=== PATIENT | male | born 1950 | race African-American/Black ===

== ENCOUNTER 2023-07-12 04:21 | Day surgery (SDC) | payer OTHER ==
[2023-07-10 10:21] VITALS: BMI 28.1
[2023-07-12] MEDS ORDERED: LIDOCAINE HCL/PF 2% SDV 5ML VIAL ONE (12:27)
[2023-07-12] MEDS ORDERED: PROPOFOL 20 ML ONE (12:27)
[2023-07-12] MEDS ORDERED: ONDANSETRON 4 MG/2 ML VIAL ONE ×2 (12:27→13:27)
[2023-07-12] MEDS ORDERED: DEXAMETHASONE SOD PHOSPHATE 4 MG/1 ML VIAL ONE ×2 (12:27→13:27)
[2023-07-12] MEDS ORDERED: MIDAZOLAM HCL 2 MG/2 ML SINGLE DOSE VIAL ONE (12:28)
[2023-07-12] MEDS ORDERED: ceFAZolin SODIUM 1 GM VIAL ONE (13:27)
[2023-07-12] MEDS ORDERED: ceFAZolin SODIUM 1 GM VIAL IVPB ONE (13:30)
[2023-07-12] MEDS ORDERED: ONDANSETRON 4 MG/2 ML VIAL IVPUSH PRN (14:35)
[2023-07-12] MEDS ORDERED: PROMETHAZINE HCL 25 MG/1 ML VIAL IVPB PRN (14:35)
[2023-07-12] MEDS ORDERED: oxyCODONE HCL 5 MG TABLET PO PRN ×2 (14:35)
[2023-07-12] MEDS ORDERED: ACETAMINOPHEN 1000 MG/100 ML BAG IVPB ONE ×2 (14:35→14:43)
[2023-07-12] MEDS ORDERED: ACETAMINOPHEN INJECTION 100 ML IVPB ONE (14:40)
[2023-07-12] MEDS ORDERED: LACTATED RINGERS SOLUTION 1,000 ML IV SCH (14:45)
[2023-07-12] MEDS ORDERED: hydrALAZINE HCL 20 MG/ML VIAL ONE (16:00)
[2023-07-12] MEDS ORDERED: hydrALAZINE HCL 20 MG/ML VIAL IVPUSH ONE (16:03)
[2023-07-12 17:12] VITALS: RESP 18
[2023-07-12 17:45] VITALS: BP 123/84; PULSE 88; TEMP 98.2
== END 2023-07-12 17:45 | disposition home or self-care (01) ==
LOC: JASU-SURG 04:21
PROVIDERS: ATTEND Urology
PROC: 0V503ZZ Destruction of Prostate, Percutaneous Approach (ICD-10-PCS; principal; 2023-07-12 13:00)
DX: C61 Malignant neoplasm of prostate (principal)
CPT/HCPCS: 55873; C2618; 94760

== ENCOUNTER 2023-10-24 07:48 | Inpatient (IN) | payer OTHER ==
[2023-10-22 13:58] VITALS: BMI 27.8
[2023-10-24] MEDS ORDERED: MIDAZOLAM HCL 2 MG/2 ML SINGLE DOSE VIAL ONE ×2 (09:24→12:41)
[2023-10-24] MEDS ORDERED: ROPIVACAINE HCL 0.5% 30ML VIAL ONE (10:20)
[2023-10-24] MEDS ORDERED: DEXAMETHASONE SOD PHOSPHATE/PF 10 MG/ML SDV ONE (10:20)
[2023-10-24] MEDS ORDERED: BUPIVACAINE HCL/PF 0.5% (5MG/ML) 10 ML VIAL ONE (10:44)
[2023-10-24] MEDS ORDERED: PROPOFOL 60 ML ONE (11:01)
[2023-10-24] MEDS ORDERED: VANCOMYCIN 1,000 MG VIAL (RESTRICTED TO ID ONLY) ONE (11:24)
[2023-10-24] MEDS ORDERED: ONDANSETRON 4 MG/2 ML VIAL ONE (11:24)
[2023-10-24] MEDS ORDERED: ceFAZolin SODIUM 1 GM VIAL ONE ×2 (11:24→12:50)
[2023-10-24] MEDS ORDERED: KETOROLAC TROMETHAMINE 30 MG/1 ML VIAL ONE (11:24)
[2023-10-24] MEDS ORDERED: TRANEXAMIC ACID 1000 MG/10 ML VIAL ONE ×2 (11:24→12:50)
[2023-10-24] MEDS ORDERED: PROPOFOL 20 ML ONE (12:55)
[2023-10-24] MEDS ORDERED: ACETAMINOPHEN 1000 MG/100 ML BAG IVPB ONE (14:15)
[2023-10-24] MEDS ORDERED: ONDANSETRON 4 MG/2 ML VIAL IVPUSH PRN ×2 (14:15→14:54)
[2023-10-24] MEDS ORDERED: oxyCODONE HCL 5 MG TABLET PO PRN (14:15)
[2023-10-24] MEDS ORDERED: MAGNESIUM HYDROX 2400MG/30ML ORAL SUSPENSION 30 ML CUP PO PRN (14:54)
[2023-10-24] MEDS ORDERED: MAG HYDROX/AL HYDROX/SIMETH 30 ML UNIT-DOSE CUP PO PRN (14:54)
[2023-10-24] MEDS ORDERED: LACTATED RINGERS SOLUTION 1,000 ML IV SCH (15:00)
[2023-10-24] MEDS ORDERED: ACETAMINOPHEN INJECTION 100 ML IVPB ONE (15:12)
[2023-10-24] MEDS: LACTATED RINGERS SOLUTION 1,000 ML IV SCH (16:50)
[2023-10-24] MEDS: KETOROLAC TROMETHAMINE 30 MG/1 ML VIAL IVPUSH SCH ×2 (16:51→22:07)
[2023-10-24] MEDS: oxyCODONE HCL 5 MG TABLET PO PRN ×2 (17:25→23:52)
[2023-10-24] MEDS: CEFAZOLIN SODIUM 2 GM in DEXTROSE 5%-WATER 100 ML IVPB SCH (18:27)
[2023-10-24] MEDS ORDERED: oxyCODONE HCL 10 MG SUSTAINED ACTING TABLET PO SCH (22:00)
[2023-10-24] MEDS: CELECOXIB 200 MG CAPSULE PO SCH (22:05)
[2023-10-24] MEDS: ACETAMINOPHEN 500 MG TABLET (FP) PO SCH (22:05)
[2023-10-24] MEDS: GABAPENTIN 300 MG CAPSULE PO SCH (22:05)
[2023-10-24] MEDS: SENNOSIDES/DOCUSATE COMBO (SENNA PLUS) TABLET (UD) PO SCH (22:06)
[2023-10-24] MEDS: ASPIRIN COATED 81 MG TABLET.EC PO SCH (22:08)
[2023-10-25] MEDS: CEFAZOLIN SODIUM 2 GM in DEXTROSE 5%-WATER 100 ML IVPB SCH ×2 (01:52→06:04)
[2023-10-25] MEDS: ACETAMINOPHEN 500 MG TABLET (FP) PO SCH ×4 (03:52→22:02)
[2023-10-25] MEDS: oxyCODONE HCL 5 MG TABLET PO PRN ×3 (05:30→22:04)
[2023-10-25 08:06] LABS: HEMATOCRIT 33.9 % (35.4-49); HEMOGLOBIN 11.2 G/dL (11.7-16.9); MCH 32.1 pg (25.7-33.7); MEAN PLT VOLUME 7.6 fl (7.5-11.1); PLATELET COUNT 206.9 10^3/uL (134-434); RBC 3.49 10^6/uL (4.00-5.60); RDW 13.8 % (11.9-15.9)
[2023-10-25 08:40] LABS: CALCIUM 8.6 mg/dl (8.5-10.1); CREATININE 1.2 mg/dl (0.6-1.3); POTASSIUM 4.2 mmol/L (3.5-5.1)
[2023-10-25] MEDS: GABAPENTIN 300 MG CAPSULE PO SCH ×2 (09:08→22:01)
[2023-10-25] MEDS: ASPIRIN COATED 81 MG TABLET.EC PO SCH ×2 (09:08→22:02)
[2023-10-25] MEDS: CELECOXIB 200 MG CAPSULE PO SCH ×2 (09:08→22:01)
[2023-10-25] MEDS: SENNOSIDES/DOCUSATE COMBO (SENNA PLUS) TABLET (UD) PO SCH (09:08)
[2023-10-25] MEDS: PANTOPRAZOLE 40 MG TABLET PO SCH (09:10)
[2023-10-25] MEDS: LACTATED RINGERS SOLUTION 1,000 ML IV SCH (17:12)
[2023-10-26] MEDS: SENNOSIDES/DOCUSATE COMBO (SENNA PLUS) TABLET (UD) PO SCH ×3 (05:38→23:07)
[2023-10-26] MEDS: ACETAMINOPHEN 500 MG TABLET (FP) PO SCH ×4 (06:34→22:55)
[2023-10-26 08:34] LABS: HEMATOCRIT 31.6 % (35.4-49); HEMOGLOBIN 10.4 G/dL (11.7-16.9); MCH 31.5 pg (25.7-33.7); MCHC 32.9 g/dl (32.0-35.9); MEAN CELL VOLUME 95.7 fl (80-96); PLATELET COUNT 204.9 10^3/uL (134-434); RDW 13.9 % (11.9-15.9)
[2023-10-26 08:46] LABS: CALCIUM 8.5 mg/dl (8.5-10.1); CREATININE 1.1 mg/dl (0.6-1.3); POTASSIUM 3.8 mmol/L (3.5-5.1)
[2023-10-26] MEDS: oxyCODONE HCL 5 MG TABLET PO PRN ×4 (09:05→22:56)
[2023-10-26] MEDS: GABAPENTIN 300 MG CAPSULE PO SCH ×2 (09:05→22:56)
[2023-10-26] MEDS: ASPIRIN COATED 81 MG TABLET.EC PO SCH ×2 (09:06→22:57)
[2023-10-26] MEDS: PANTOPRAZOLE 40 MG TABLET PO SCH (09:06)
[2023-10-26] MEDS: CELECOXIB 200 MG CAPSULE PO SCH ×2 (09:06→22:55)
[2023-10-27] MEDS: PANTOPRAZOLE 40 MG TABLET PO SCH (09:21)
[2023-10-27] MEDS: GABAPENTIN 300 MG CAPSULE PO SCH (09:21)
[2023-10-27] MEDS: CELECOXIB 200 MG CAPSULE PO SCH ×2 (09:21→22:27)
[2023-10-27] MEDS: ACETAMINOPHEN 500 MG TABLET (FP) PO SCH ×4 (09:22→18:13)
[2023-10-27] MEDS: oxyCODONE HCL 5 MG TABLET PO PRN ×2 (09:22→18:11)
[2023-10-27] MEDS: ASPIRIN COATED 81 MG TABLET.EC PO SCH ×2 (09:22→22:27)
[2023-10-27] MEDS: SENNOSIDES/DOCUSATE COMBO (SENNA PLUS) TABLET (UD) PO SCH ×2 (09:22→22:28)
[2023-10-28 06:44] VITALS: RESP 18
[2023-10-28 08:26] LABS: CALCIUM 8.5 mg/dl (8.5-10.1); POTASSIUM 4.3 mmol/L (3.5-5.1)
[2023-10-28 08:32] LABS: HEMATOCRIT 29.2 % (35.4-49); HEMOGLOBIN 9.9 G/dL (11.7-16.9); MCH 32.4 pg (25.7-33.7); MCHC 33.7 g/dl (32.0-35.9); MEAN CELL VOLUME 95.9 fl (80-96); MEAN PLT VOLUME 8.2 fl (7.5-11.1); PLATELET COUNT 245.2 10^3/uL (134-434); RBC 3.04 10^6/uL (4.00-5.60); RDW 13.9 % (11.9-15.9); WHITE BLOOD COUNT 5.2 10^3/uL (4.0-10.8)
[2023-10-28] MEDS: PANTOPRAZOLE 40 MG TABLET PO SCH (09:16)
[2023-10-28] MEDS: CELECOXIB 200 MG CAPSULE PO SCH (09:16)
[2023-10-28] MEDS: oxyCODONE HCL 5 MG TABLET PO PRN (09:16)
[2023-10-28] MEDS: ASPIRIN COATED 81 MG TABLET.EC PO SCH (09:16)
[2023-10-28] MEDS: SENNOSIDES/DOCUSATE COMBO (SENNA PLUS) TABLET (UD) PO SCH (09:24)
[2023-10-28 10:18] VITALS: BP 131/81; PULSE 18; TEMP 98.6
== END 2023-10-28 14:00 | disposition home or self-care (01) | DRG 470 ==
LOC: FM/S 07:48
PROVIDERS: ADMIT Orthopaedic Surgery Orthopaedic Surgery of the Spine; ATTEND Orthopaedic Surgery Orthopaedic Surgery of the Spine
PROC: 0SRC0J9 Replacement of Right Knee Joint with Synthetic Substitute, Cemented, Open Approach (ICD-10-PCS; principal; 2023-10-24 11:32)
DX: M17.11 Unilateral primary osteoarthritis, right knee (principal)
CPT/HCPCS: 36415; 73560-TC-RT-FY; 80048; 85027; 88305-TC; 88311-TC; 94760; 97010-GP; 97116-GP; 97162-GP; C1713; C1776; C1889

== ENCOUNTER 2023-11-10 06:19 | Inpatient (IN) | payer OTHER ==
[2023-11-10 06:31] VITALS: BMI 27.8
[2023-11-10 07:19] LABS: INR 1.16 (0.83-1.09); PROTHROMBIN TIME (PATIENT) 13.4 SEC (9.7-13.0)
[2023-11-10 07:21] LABS: BASO % 0.7 % (0-2.0); EOS % 3.4 % (0-4.5); HEMATOCRIT 36.8 % (35.4-49); HEMOGLOBIN 12.2 GM/dL (11.7-16.9); LYMPH % 11.2 % (8-40); MCH 32.1 pg (25.7-33.7); MCHC 33.1 g/dl (32.0-35.9); MEAN CELL VOLUME 96.9 fl (80-96); MEAN PLT VOLUME 6.8 fl (7.5-11.1); MONO % 9.5 % (3.8-10.2); NEUT % 75.2 % (42.8-82.8); PLATELET COUNT 504 10^3/uL (134-434); RDW 15.2 % (11.9-15.9); WHITE BLOOD COUNT 9.6 K/mm3 (4.0-10.0)
[2023-11-10 07:22] LABS: ACTIVATED PTT 26.2 SECONDS (25.2-36.5)
[2023-11-10] MEDS ORDERED: ONDANSETRON 4 MG/2 ML VIAL ONE (07:31)
[2023-11-10] MEDS ORDERED: LIDOCAINE HCL/PF 2% SDV 5ML VIAL ONE (07:31)
[2023-11-10] MEDS ORDERED: DEXAMETHASONE SOD PHOSPHATE 4 MG/1 ML VIAL ONE (07:31)
[2023-11-10] MEDS ORDERED: SODIUM CHLORIDE 0.9% P/F 10 ML VIAL IJ ONE (07:31)
[2023-11-10] MEDS ORDERED: PROPOFOL 40 ML ONE (07:35)
[2023-11-10 07:45] LABS: POTASSIUM 4.6 mmol/L (3.5-5.1)
[2023-11-10 07:48] LABS: ALBUMIN 3.6 g/dl (3.4-5.0); BLOOD UREA NITROGEN 16.8 mg/dL (7-18); CALCIUM 9.4 mg/dL (8.5-10.1)
[2023-11-10 07:51] LABS: CREATININE 1.2 mg/dL (0.55-1.3)
[2023-11-10 07:52] LABS: BILIRUBIN,TOTAL 0.7 mg/dL (0.2-1); TOT PROT 7.4 g/dl (6.4-8.2)
[2023-11-10] MEDS ORDERED: MIDAZOLAM HCL 2 MG/2 ML SINGLE DOSE VIAL ONE (08:38)
[2023-11-10] MEDS ORDERED: ceFAZolin SODIUM 1 GM VIAL IVPB ONE (08:50)
[2023-11-10] MEDS ORDERED: VANCOMYCIN 1,000 MG VIAL (RESTRICTED TO ID ONLY) ONE (09:02)
[2023-11-10] MEDS ORDERED: VANCOMYCIN 1,000 MG VIAL (RESTRICTED TO ID ONLY) IVPB ONE (09:03)
[2023-11-10] MEDS ORDERED: BENZOIN/ALOE VERA/STORAX/TOLU 58 ML BOTTLE ONE (09:34)
[2023-11-10] MEDS ORDERED: KETOROLAC TROMETHAMINE 30 MG/1 ML VIAL ONE (09:36)
[2023-11-10] MEDS ORDERED: ONDANSETRON 4 MG/2 ML VIAL IVPUSH PRN ×3 (10:14→11:51)
[2023-11-10] MEDS ORDERED: PROMETHAZINE HCL 25 MG/1 ML VIAL IVPB PRN (10:14)
[2023-11-10] MEDS ORDERED: ACETAMINOPHEN 1000 MG/100 ML BAG IVPB ONE ×2 (10:14→11:13)
[2023-11-10] MEDS ORDERED: LACTATED RINGERS SOLUTION 1,000 ML IV SCH ×4 (10:15→11:51)
[2023-11-10] MEDS ORDERED: oxyCODONE HCL 5 MG TABLET PO PRN ×3 (10:28→11:51)
[2023-11-10] MEDS ORDERED: MAGNESIUM HYDROX 2400MG/30ML ORAL SUSPENSION 30 ML CUP PO PRN ×2 (11:11→11:51)
[2023-11-10] MEDS ORDERED: MAG HYDROX/AL HYDROX/SIMETH 30 ML UNIT-DOSE CUP PO PRN ×2 (11:11→11:51)
[2023-11-10] MEDS ORDERED: ACETAMINOPHEN INJECTION 100 ML IVPB ONE (11:11)
[2023-11-10] MEDS: CEFAZOLIN SODIUM 2 GM in DEXTROSE 5%-WATER 100 ML IVPB SCH ×2 (12:21→18:22)
[2023-11-10] MEDS ORDERED: CEFAZOLIN SODIUM 2 GM in DEXTROSE 5%-WATER 100 ML IVPB SCH (13:00)
[2023-11-10] MEDS ORDERED: CEFAZOLIN 2 GM in DEXTROSE 5%-WATER - 50 ML IVPB SCH (18:00)
[2023-11-10] MEDS: SENNOSIDES/DOCUSATE COMBO (SENNA PLUS) TABLET (UD) PO SCH (21:41)
[2023-11-10] MEDS: GABAPENTIN 300 MG CAPSULE PO SCH (21:41)
[2023-11-10] MEDS: ASPIRIN 81 MG CHEWABLE TABLETS PO SCH (21:41)
[2023-11-10] MEDS: CELECOXIB 100 MG CAPSULE PO SCH (21:42)
[2023-11-10] MEDS ORDERED: CELECOXIB 200 MG CAPSULE PO SCH (22:00)
[2023-11-10] MEDS ORDERED: ASPIRIN 325 MG TABLET PO SCH (22:00)
[2023-11-10] MEDS ORDERED: GABAPENTIN 300 MG CAPSULE PO SCH (22:00)
[2023-11-10] MEDS ORDERED: SENNOSIDES/DOCUSATE COMBO (SENNA PLUS) TABLET (UD) PO SCH (22:00)
[2023-11-11] MEDS: CEFAZOLIN SODIUM 2 GM in DEXTROSE 5%-WATER 100 ML IVPB SCH ×4 (01:00→18:23)
[2023-11-11] MEDS: ASPIRIN 81 MG CHEWABLE TABLETS PO SCH ×2 (09:36→21:29)
[2023-11-11] MEDS: MULTIVITAMINS (DAILY MVI) TABLET (FP) PO SCH (09:36)
[2023-11-11] MEDS: GABAPENTIN 300 MG CAPSULE PO SCH ×2 (09:36→21:29)
[2023-11-11] MEDS: CELECOXIB 100 MG CAPSULE PO SCH ×2 (09:36→21:29)
[2023-11-11] MEDS: PANTOPRAZOLE 40 MG TABLET PO SCH (09:36)
[2023-11-11] MEDS: SENNOSIDES/DOCUSATE COMBO (SENNA PLUS) TABLET (UD) PO SCH ×2 (09:36→21:29)
[2023-11-11] MEDS ORDERED: PANTOPRAZOLE 40 MG TABLET PO SCH (10:00)
[2023-11-11 10:15] LABS: BASO % 0.5 % (0-2.0); EOS % 1.1 % (0-4.5); HEMATOCRIT 32.1 % (35.4-49); HEMOGLOBIN 10.7 GM/dL (11.7-16.9); LYMPH % 14.1 % (8-40); MCH 31.8 pg (25.7-33.7); MCHC 33.5 g/dl (32.0-35.9); MEAN CELL VOLUME 95.1 fl (80-96); MEAN PLT VOLUME 7.1 fl (7.5-11.1); MONO % 11.2 % (3.8-10.2); NEUT % 73.1 % (42.8-82.8); PLATELET COUNT 439 10^3/uL (134-434); RBC 3.37 M/mm3 (4.00-5.60); RDW 14.6 % (11.9-15.9); WHITE BLOOD COUNT 8.5 K/mm3 (4.0-10.0)
[2023-11-11 10:29] LABS: POTASSIUM 3.9 mmol/L (3.5-5.1)
[2023-11-11 10:34] LABS: CALCIUM 8.9 mg/dL (8.5-10.1)
[2023-11-11 10:35] LABS: BLOOD UREA NITROGEN 18.6 mg/dL (7-18); MAGNESIUM 2.2 mg/dL (1.8-2.4)
[2023-11-11 10:38] LABS: CREATININE 1.1 mg/dL (0.55-1.3); PHOSPHOROUS 3.6 mg/dL (2.5-4.9)
[2023-11-11 10:39] VITALS: RESP 18
[2023-11-11] MEDS: oxyCODONE HCL 5 MG TABLET PO PRN ×2 (11:51→21:29)
[2023-11-12] MEDS: CEFAZOLIN SODIUM 2 GM in DEXTROSE 5%-WATER 100 ML IVPB SCH ×3 (01:25→12:16)
[2023-11-12] MEDS: oxyCODONE HCL 5 MG TABLET PO PRN ×3 (06:32→21:46)
[2023-11-12] MEDS: PANTOPRAZOLE 40 MG TABLET PO SCH (09:13)
[2023-11-12] MEDS: GABAPENTIN 300 MG CAPSULE PO SCH ×2 (09:13→21:46)
[2023-11-12] MEDS: ASPIRIN 81 MG CHEWABLE TABLETS PO SCH ×2 (09:13→21:46)
[2023-11-12] MEDS: SENNOSIDES/DOCUSATE COMBO (SENNA PLUS) TABLET (UD) PO SCH ×2 (09:13→21:46)
[2023-11-12] MEDS: MULTIVITAMINS (DAILY MVI) TABLET (FP) PO SCH (09:13)
[2023-11-12] MEDS: CELECOXIB 100 MG CAPSULE PO SCH (09:14)
[2023-11-12 10:04] LABS: HEMATOCRIT 33.2 % (35.4-49); HEMOGLOBIN 10.9 GM/dL (11.7-16.9); MCH 31.3 pg (25.7-33.7); MCHC 32.7 g/dl (32.0-35.9); MEAN CELL VOLUME 95.6 fl (80-96); MEAN PLT VOLUME 7.4 fl (7.5-11.1); PLATELET COUNT 420 10^3/uL (134-434); RBC 3.48 M/mm3 (4.00-5.60); RDW 14.6 % (11.9-15.9); WHITE BLOOD COUNT 5.8 K/mm3 (4.0-10.0)
[2023-11-12 10:32] LABS: POTASSIUM 3.8 mmol/L (3.5-5.1)
[2023-11-12 10:35] LABS: CALCIUM 9.4 mg/dL (8.5-10.1)
[2023-11-12 10:36] LABS: ALBUMIN 3.1 g/dl (3.4-5.0); BLOOD UREA NITROGEN 17.4 mg/dL (7-18); MAGNESIUM 2.3 mg/dL (1.8-2.4)
[2023-11-12 10:39] LABS: CREATININE 1.1 mg/dL (0.55-1.3); PHOSPHOROUS 3.9 mg/dL (2.5-4.9)
[2023-11-12 10:40] LABS: TOT PROT 6.2 g/dl (6.4-8.2)
[2023-11-12 10:41] LABS: BILIRUBIN,TOTAL 0.3 mg/dL (0.2-1)
[2023-11-13] MEDS: GABAPENTIN 300 MG CAPSULE PO SCH (10:13)
[2023-11-13] MEDS: PANTOPRAZOLE 40 MG TABLET PO SCH (10:13)
[2023-11-13] MEDS: MULTIVITAMINS (DAILY MVI) TABLET (FP) PO SCH (10:13)
[2023-11-13] MEDS: ASPIRIN 81 MG CHEWABLE TABLETS PO SCH (10:13)
[2023-11-13] MEDS: SENNOSIDES/DOCUSATE COMBO (SENNA PLUS) TABLET (UD) PO SCH (10:14)
[2023-11-13 10:20] LABS: HEMATOCRIT 36.8 % (35.4-49); HEMOGLOBIN 12.3 GM/dL (11.7-16.9); MCH 31.7 pg (25.7-33.7); MCHC 33.5 g/dl (32.0-35.9); MEAN CELL VOLUME 94.6 fl (80-96); MEAN PLT VOLUME 7.1 fl (7.5-11.1); PLATELET COUNT 540 10^3/uL (134-434); RBC 3.89 M/mm3 (4.00-5.60); RDW 14.6 % (11.9-15.9); WHITE BLOOD COUNT 6.6 K/mm3 (4.0-10.0)
[2023-11-13 10:52] LABS: POTASSIUM 4.3 mmol/L (3.5-5.1)
[2023-11-13 11:25] LABS: CALCIUM 9.2 mg/dL (8.5-10.1)
[2023-11-13 11:26] LABS: ALBUMIN 3.3 g/dl (3.4-5.0); MAGNESIUM 2.3 mg/dL (1.8-2.4)
[2023-11-13 11:29] LABS: CREATININE 1.2 mg/dL (0.55-1.3)
[2023-11-13 11:30] LABS: TOT PROT 6.9 g/dl (6.4-8.2)
[2023-11-13 11:31] LABS: BILIRUBIN,TOTAL 0.5 mg/dL (0.2-1)
[2023-11-13 14:50] VITALS: BP 119/69; PULSE 77; TEMP 98.8
== END 2023-11-13 17:15 | disposition home or self-care (01) | DRG 908 ==
LOC: JER 06:19 → JASUSAT 09:37 → SUATTDRO 09:37 → JASUSAT 11:32 → J6S 11:32 → UNDOADMIN 11-11 18:58 → J6S 11-11 18:58 → JASUSAT 11-11 18:59
PROVIDERS: ADMIT Internal Medicine; ATTEND Internal Medicine
PROC: 0S9C00Z Drainage of Right Knee Joint with Drainage Device, Open Approach (ICD-10-PCS; principal; 2023-11-10 08:00)
DX: T88.8XXA Other specified complications of surgical and medical care, not elsewhere classified, initial encounter (principal); M25.061 Hemarthrosis, right knee; Y83.9 Surgical procedure, unspecified as the cause of abnormal reaction of the patient, or of later complication, without mention of misadventure at the time of the procedure
CPT/HCPCS: 36415; 80048; 80053; 83735; 84100; 85025; 85027; 85610; 85730; 86850; 86900; 86901; 87070; 87205; 94760; 97116-GP; 97162-GP; 99285-25